=== PATIENT | female | born 1965 | race Caucasian/White ===

== ENCOUNTER → 2016-11-28 | Outpatient (CLI) | payer OTHER | LOC: KOH-I 13:18 | DX: M81.0 Age-related osteoporosis without current pathological fracture (principal) | CPT/HCPCS: 77080 ==

== ENCOUNTER 2021-05-07 14:08 | Emergency (ER) | payer OTHER ==
[~2021-05-07] VITALS: Ht 160 cm; Wt 79.4 kg
[~2021-05-07 14:08] MED LIST: BENTYL 20MG TAB20 MG PO; IBUPROFEN800 MG PO; PHENERGAN 12.12.5 M1 PO
[2021-05-07 14:56] LABS: HEMOGLOBIN 16.5 gm/dl (12.3-15.3); RED BLOOD COUNT 5.45 M/UL (4.00-5.10)
[2021-05-07 15:24] LABS: BUN/CREATININE RATIO 35 (0-10)
== END 2021-05-07 17:25 | disposition home or self-care (01) ==
LOC: ER1 14:08
PROVIDERS: Family Medicine
DX: U07.1 COVID-19 (principal); J45.909 Unspecified asthma, uncomplicated; Z23 Encounter for immunization; E78.5 Hyperlipidemia, unspecified; Z88.0 Allergy status to penicillin; Z88.5 Allergy status to narcotic agent
CPT/HCPCS: 71045; 80053; 82550; 82553; 83874; 84484; 85025; 85379; 93005; 99285; M0243